=== PATIENT | male | born 1950 | race Caucasian/White ===

== ENCOUNTER → 2016-12-16 | Outpatient (CLI) | payer MEDICARE ==
--- NOTE | 2016-12-16 09:33 | REP ---
Right upper quadrant sonography: History: Hepatitis C. Comparison study: December 17, 2015. Findings: Scanning through the right upper quadrant of the abdomen demonstrates a normal sized, thin-walled gallbladder without evidence of stone or polyp. Common bile duct is normal measuring 0.3 cm in greatest diameter. No focal liver lesion is seen. Liver size is normal. No pancreatic abnormality is observed. No right renal abnormality is seen. There is no evidence of ascites. The right kidney measures 10.5 x 5.8 x 4.6 cm. Impression: Negative right upper quadrant sonography. Signed by Jeromy Grossman MD 12/16/2016 09:24 A
== END ==
LOC: M RAD 08:27
PROVIDERS: ATTEND Nurse Practitioner Family
DX: B18.2 Chronic viral hepatitis C (principal)

== ENCOUNTER → 2017-12-06 | Outpatient (CLI) | payer MEDICARE | LOC: M RAD 08:07 | DX: B18.2 Chronic viral hepatitis C (principal) | CPT/HCPCS: 76705 ==

== ENCOUNTER → 2018-12-18 | Outpatient (CLI) | payer MEDICARE ==
--- NOTE | 2018-12-18 10:02 | REP ---
Abdominal right upper quadrant ultrasound in a patient with chronic hepatitis C. Comparison is 12/06/2017. There is no cholelithiasis, gallbladder wall thickening or pericholecystic fluid. There is no intrahepatic or extrahepatic biliary duct dilatation. The common biliary duct measures 6.3 mm in diameter. There is no ascites. The hepatic parenchyma is homogeneous. There are no hepatic masses. The pancreas is obscured by bowel gas. The right kidney is in the low normal size range measuring 9.5 x 5.7 x 4.6 cm. There is no right renal solid or cystic mass. There is no right renal calculus or hydronephrosis. Impression: Essentially negative abdominal right upper quadrant ultrasound. There is no hepatic mass. The pancreas is obscured by bowel gas. Electronically Signed by Dionte Shah MD 12/18/2018 09:54 A
== END ==
LOC: M RAD 08:15
PROVIDERS: ATTEND Family Medicine
DX: B19.20 Unspecified viral hepatitis C without hepatic coma (principal)

== ENCOUNTER → 2019-12-19 | Outpatient (CLI) | payer MEDICARE ==
--- NOTE | 2019-12-24 10:31 | REP ---
RIGHT UPPER QUADRANT SONOGRAPHY HISTORY: Chronic viral hepatitis. COMPARISON: Sonography 12/18/2018 and 12/06/2017. FINDINGS: Scanning through the right upper quadrant of the abdomen demonstrates a normal sized thin walled gallbladder without evidence of stone or polyp. Common bile duct is normal measuring 0.5 cm in greatest diameter. No focal liver mass lesion is seen. Liver is not enlarged. No pancreatic abnormality is observed. Normal caliber aorta is seen. There is no evidence of ascites. No right renal abnormality is seen. The right kidney measures 9.9 x 5.8 x 4.7 cm. IMPRESSION: Negative right upper quadrant sonography. No liver mass lesion visible. MTDD
== END ==
LOC: M RAD 07:16
PROVIDERS: ATTEND Family Medicine
DX: B18.9 Chronic viral hepatitis, unspecified (principal)